=== PATIENT | female | born 1985 | race Caucasian/White ===

== ENCOUNTER → 2021-08-08 | Outpatient (CLI) | payer OTHER ==
--- NOTE | 2021-08-08 08:53 | REP ---
INDICATION: IRREGULAR MENSES. COMPARISON: None. TECHNIQUE: Transvesical and transvaginal imaging FINDINGS: The uterus measures 8.4 x 3.9 x 5.6 cm. The parenchymal echo pattern is within normal limits. The endometrial echo complex measures 1.2 cm in thickness. It is heterogenous. Within the ECC there is a 5 mm sized focal area of decreased echoes. There is no free endometrial cavitary fluid. The right ovary measures 4 x 2.2 x 2.6 cm and is within normal limits with an RI of 0.54 The left ovary measures 3.7 x 1.7 x 2.4 cm and is within normal limits with an RI 0.6. Urinary bladder measures 5 x 7 x 3 cm. IMPRESSION: The endometrial echo complex is somewhat heterogenous and poorly defined. Within the ECC there is a tiny focal area of decreased echoes as described above. A small polyp cannot be ruled out. Two month follow-up examination is recommended. <Electronically signed by Parish Menendez > 08/08/21 0867
== END ==
LOC: M RAD 07:47
PROVIDERS: ATTEND Registered Nurse Maternal Newborn
DX: N92.0 Excessive and frequent menstruation with regular cycle (principal)